=== PATIENT | female | born 1965 | race Caucasian/White ===

== ENCOUNTER 2019-02-03 21:59 | Emergency (ER) | payer OTHER ==
[~2019-02-03] VITALS: Ht 162.6 cm; Wt 81.6 kg
[2019-02-03 22:03] VITALS: BP 123/90
--- NOTE | 2019-02-03 22:03 | NUR ---
TO BED # 11 AMBULATORY
--- NOTE | 2019-02-03 22:19 | NUR ---
PT C/O OF REDNESS AND ITCHING TO LEFT HIP AREA, RIGHT LOWER EXTREMITY AND RIGHT ARM. DENIES PAIN. DENIES ANY CHANGES IN SOAP, DETERGENT, OR DAILY ACTIVITIES/ROUTINES. PT STATED "I TOOK BENADRYL AT 9AM, RASH CONTINUED TO SPREAD." PT STATED SHE HAS A REFERRAL FOR [employer]. SAFETY MEASURES IN PLACE. WAITING FOR ERMD TO EVALUATE PT
--- NOTE | 2019-02-03 22:19 | NUR ---
Note clarkone in EDM - 02/03/19 at 2248 by MEDDORCAS PT C/O OF REDNESS AND ITCHING TO LEFT HIP AREA, RIGHT LOWER EXTREMITY AND RIGHT ARM. DENIES PAIN. DENIES ANY CHANGES IN SOAP, DETERGENT, OR DAILY ACTIVITIES/ROUTINES. PT STATED "I TOOK BENADRYL AT 9AM, RASH CONTINUED TO SPREAD." PT STATED SHE IS CURRENTLY SEEING AN BUTTONHOLER. SAFETY MEASURES IN PLACE. WAITING FOR ERMD TO EVALUATE PT.
--- NOTE | 2019-02-03 23:50 | NUR ---
PT LYING IN BED, VSS COMFORT MEASURES OFFERED PT TOLERATED WELL.
--- NOTE | 2019-02-04 00:03 | NUR ---
PT STATED SHE WAS DIAGNOSED WITH ANGIOEDEMA, ER MD MADE AWARE
[2019-02-04 00:35] VITALS: BP 123/90
--- NOTE | 2019-02-04 00:35 | NUR ---
Patient discharged with v/s stable. Written and verbal after care instructions given and explained. RECOMMENDED NOT TO SCRATCH AREA AND TO TAKE COOL BATHS TO HELP ALLEVIATE ITCHING. Patient alert, oriented and verbalized understanding of instructions. Ambulatory with steady gait. All questions addressed prior to discharge. ID band removed. Patient advised to follow up with PMD. Rx of PREDNISONE AND EPIPEN WAS given. Patient educated on indication of medication including possible reaction and side effects. Opportunity to ask questions provided and answered.
== END 2019-02-04 00:35 | disposition home or self-care (01) ==
LOC: MED 21:59
DX: T78.40XA Allergy, unspecified, initial encounter (principal); R21 Rash and other nonspecific skin eruption; R22.0 Localized swelling, mass and lump, head; X58.XXXA Exposure to other specified factors, initial encounter; Y93.89 Activity, other specified; Y92.89 Other specified places as the place of occurrence of the external cause; Y99.8 Other external cause status
CPT/HCPCS: 99283